=== PATIENT | female | born 1960 | race Caucasian/White ===

== ENCOUNTER 2022-04-21 07:22 | Outpatient (CLI) | payer OTHER, SELFPAY | END 2022-04-21 07:23 | disposition home or self-care (01) | LOC: FRMREF 04-29 09:03 | PROVIDERS: PCP Family Medicine; Visit Provider Physician Assistant Medical | DX: Z00.00 Encounter for general adult medical examination without abnormal findings (principal); E03.9 Hypothyroidism, unspecified; E78.5 Hyperlipidemia, unspecified; I10 Essential (primary) hypertension | CPT/HCPCS: 80053; 80061; 84443 ==

== ENCOUNTER 2022-06-23 15:39 | Outpatient (CLI) | payer BC, SELFPAY ==
--- NOTE | 2022-06-23 15:40 | CRLHL7_ITS ---
For Patients: As a result of the Century Cures Act, medical imaging exams and procedure reports are released immediately into your electronic medical record. You may view this report before your referring provider. If you have questions, please contact your health care provider. BILATERAL SCREENING MAMMOGRAM WITH COMPUTER-AIDED DETECTION AND TOMOSYNTHESIS TECHNIQUE: CC and MLO views were obtained. These mammographic images have been obtained using full-field digital technique. These mammographic images were interpreted with the benefit of computer-aided detection. Breast Tomosynthesis was used in this interpretation. COMPARISON FILM: 04/29/15. FINDINGS: There are scattered areas of fibroglandular density IMPRESSION: There is no radiographic evidence for malignancy. ASSESSMENT: BI-RADS Category 1: Negative RECOMMENDATION: Routine screening mammogram in 1 year. A lay language report of this examination will be provided to the patient. Tre Diez M.D. Diagnostic/Nuclear Medicine Radiologist [email or web address] SISSY/Dictated by: Tre Diez MD @ 06/30/2022 7:59:00 AM (Electronically Signed)
== END 2022-06-23 15:40 | disposition home or self-care (01) ==
LOC: MAMMO 15:44
PROVIDERS: PCP Family Medicine
DX: Z12.31 Encounter for screening mammogram for malignant neoplasm of breast (principal)
CPT/HCPCS: 77063; 77067

== ENCOUNTER 2023-05-03 08:56 | Outpatient (CLI) | payer BC, SELFPAY | END 2023-05-03 08:57 | disposition home or self-care (01) | LOC: NFLDREF 05-04 14:24 | PROVIDERS: PCP Family Medicine; Visit Provider Physician Assistant Medical | DX: E03.9 Hypothyroidism, unspecified (principal); E78.5 Hyperlipidemia, unspecified | CPT/HCPCS: 80053; 80061; 84443 ==

== ENCOUNTER 2023-08-02 11:32 | Outpatient (CLI) | payer BC, SELFPAY ==
--- NOTE | 2023-08-02 11:30 | CRLHL7_ITS ---
For Patients: As a result of the Century Cures Act, medical imaging exams and procedure reports are released immediately into your electronic medical record. You may view this report before your referring provider. If you have questions, please contact your health care provider. BILATERAL DIGITAL SCREENING MAMMOGRAM WITH TOMOSYNTHESIS AND COMPUTER-AIDED DETECTION CLINICAL HISTORY: Routine screening exam. COMPARISON: 06/23/2022, 04/29/2015. TECHNIQUE: Digital mammogram in CC and MLO projections including computer-aided detection (CAD). Tomosynthesis utilized. BREAST COMPOSITION: The breasts are heterogeneously dense, which may obscure small masses. FINDINGS: RIGHT Breast: Focal asymmetric density upper outer quadrant 5 cm from the nipple. LEFT Breast: No suspicious findings. IMPRESSION: RIGHT breast asymmetry/mass. RECOMMENDATIONS: Additional mammographic views of the RIGHT breast including 3D spot compression CC/MLO. RIGHT breast ultrasound may also be required. BI-RADS Category 0: Incomplete: Need Additional Imaging Evaluation and/or Prior Mammograms for Comparison [facility] will contact the patient for follow-up. A lay language report of this examination will be provided to the patient. Dictated by Shankar Oliva MD @ 08/03/2023 8:41:14 AM kelly/Dictated by: Shankar Oliva MD @ 08/03/2023 8:41:00 AM (Electronically Signed)
== END 2023-08-02 11:33 | disposition home or self-care (01) ==
LOC: MAMMO 11:33
PROVIDERS: PCP Family Medicine; Visit Provider Family Medicine
DX: Z12.31 Encounter for screening mammogram for malignant neoplasm of breast (principal); N63.10 Unspecified lump in the right breast, unspecified quadrant; R92.2 Inconclusive mammogram
CPT/HCPCS: 77063; 77067

== ENCOUNTER 2023-08-08 13:35 | Outpatient (CLI) | payer BC, SELFPAY ==
--- NOTE | 2023-08-08 14:00 | CRLHL7_ITS ---
For Patients: As a result of the Century Cures Act, medical imaging exams and procedure reports are released immediately into your electronic medical record. You may view this report before your referring provider. If you have questions, please contact your health care provider. INDICATION: Calf pain TECHNIQUE: Ultrasound venous duplex lower left extremity. Compression venous exam was performed using rodriguez-scale, color Doppler, and spectral Doppler analysis. COMPARISON: None. FINDINGS: Sonographic imaging demonstrates the left common femoral, deep femoral, superficial femoral, popliteal, posterior tibial and greater saphenous and the contralateral right common femoral veins to be fully compressible with normal color Doppler blood flow. IMPRESSION: Normal left lower extremity venous ultrasound, no sign of deep venous thrombosis. Dictated by Teja Lim MD @ 08/08/2023 5:07:24 PM (Electronically Signed)
== END 2023-08-08 13:36 | disposition home or self-care (01) ==
PROVIDERS: PCP Physician Assistant Medical; Visit Provider Physician Assistant Medical
DX: M79.662 Pain in left lower leg (principal)
CPT/HCPCS: 93971

== ENCOUNTER 2023-08-18 09:15 | Outpatient (CLI) | payer BC, SELFPAY ==
--- NOTE | 2023-08-18 09:45 | CRLHL7_ITS ---
For Patients: As a result of the Cures Act, medical imaging exams and procedure reports are released immediately into your electronic medical record. You may view this report before your referring provider. If you have questions, please contact your health care provider. RIGHT DIGITAL DIAGNOSTIC MAMMOGRAM WITH COMPUTER-AIDED DETECTION AND TOMOSYNTHESIS RIGHT BREAST ULTRASOUND CLINICAL HISTORY: RIGHT breast mass/asymmetry. COMPARISON: 08/02/2023, 06/23/2022 TECHNIQUE: Digital RIGHT mammogram in two projections. Mammographic images were interpreted with the benefit of computer-aided detection and tomosynthesis. Real-time ultrasound imaging of RIGHT breast with imaging documentation. Scanning was performed by both the technologist and the radiologist. BREAST COMPOSITION: Scattered fibroglandular densities. FINDINGS: 3D spot compression cc/MLO RIGHT breast mammogram images submitted. Persistent asymmetric density in the upper outer quadrant RIGHT breast. No suspicious calcifications. Targeted RIGHT breast ultrasound performed. At 11 o`clock 3 cm from the nipple, there is a hypoechoic focus measuring 8 x 7 x 6 mm. This may be taller than wide. IMPRESSION: Indeterminate hypoechoic focus at anterior depth of RIGHT breast at 11 o`clock 3 cm from the nipple, measuring 8 mm. RECOMMENDATIONS: Ultrasound-guided core needle biopsy recommended. Results and recommendations discussed with the patient. BI-RADS Category 4. Suspicious. Dictated by Shankar Oliva MD @ 08/18/2023 12:32:48 PM CRL:[email or web address] RD/Dictated by: Shankar Oliva MD @ 08/18/2023 12:32:00 PM (Electronically Signed)
--- NOTE | 2023-08-18 09:54 | CRLHL7_ITS ---
For Patients: As a result of the Century Cures Act, medical imaging exams and procedure reports are released immediately into your electronic medical record. You may view this report before your referring provider. If you have questions, please contact your health care provider. PLEASE SEE RIGHT DIAGNOSTIC MAMMOGRAM OF SAME DAY FOR COMBINED REPORT. CRL:[email or web address] RD/Dictated by: Shankar Oliva MD @ 08/18/2023 12:32:00 PM (Electronically Signed)
== END 2023-08-18 09:16 | disposition home or self-care (01) ==
LOC: MAMMO 09:16
PROVIDERS: PCP Physician Assistant Medical; Visit Provider Physician Assistant Medical
DX: N63.10 Unspecified lump in the right breast, unspecified quadrant (principal); R92.8 Other abnormal and inconclusive findings on diagnostic imaging of breast
CPT/HCPCS: 76642; 77065; G0279

== ENCOUNTER 2023-08-30 13:45 | Outpatient (RCR) | payer BC, SELFPAY ==
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
--- NOTE | 2023-07-24 12:31 | PT.OPDN ---
PT [place] Outpatient Daily Note PT [facility] Outpatient Daily Note Start: 05/05/23 12:45 Freq: Status: Active Protocol: Document 07/24/23 12:21 [place] (Rec: 07/24/23 12:29 [place]ENCE [id number]) E-signed By CAROL RollinsT, MS PT OP Daily Progress Note Visit Information Note Type Recert/Progress Note Visit Number 6 Insurance Authorized Visits - Physician Authorized Visits Eval and treat Insurance Information Recert Due Date 07/04/23 Insurance Name Blue Cross/Blue Shield Medical Diagnosis Cervicalgia; other chronic pain Treating Diagnosis Decreased B CS flexibility, B CS muscular hypertonicity, posture dysfunction, deep neck flexor and B UE weakness Subjective Subjective Pt reports PT sessions remain extremely helpful with continued overall improvement in neck pain and HAs. Continues to experience elevated B UT and upper CS tension but her HEP and heat remain effective at reducing sxs. Hopes to decrease sxs before leaving for [place] in Aug. Pain Comments 0-4/10 Preferred Name Isabelle Objective Other/Pertinent Objective CS AROM Flex: 45 deg with stretch Ext: 35 deg with pain SB: B 30 deg B 75 deg with stretch MMT: shoulder flexion B 5/5 shoulder abduction B 5/5 shoulder IR: B 5/5 shoulder ER: B 4+/5 Deep neck flexors: 24 sec with fatigue LT: L 4/5 R 4-/5 MT: 4/5 B Palpation: improved hypertonicity B CS paraspinals , B levator scap, UT and scalenes Posture: B rounded shoulders and slight fwd head in sitting Special tests: spurlings compression - B for pain just tightness, no pain and relief with distraction cervical flexion and rotation test: normal rotation and no associated pains B hypomobility C1-T3 PA and UPA Patient Instructed in Risks/Benefits Yes Therapeutic Exercise Therapeutic Exercise Minutes (minutes) 20 Therapeutic Exercise: To Restore Levator scap and UT stretches Functional Status Rows and B shoulder ext progressed GTB 15 x 3 slower movement UBE fwd/bwd x 5 min for warmup Progressed to supine chin tuck 2 lift 24 x 4 Doorway pec stretch Seated chin tucks Manual Therapy Techniques Manual Therapy Minutes (minutes) 25 Manual Therapy Techniques *resolution of neck pain following Manual CS traction STM/TPR SO, CS alix, UT and levator. B SO and UT again most reactive with decreased hypertonicity following. Grade 3-4 B 1st rib, CPA and UPA C5-T4 Skilled passive B UT and levator scap stretches Treatment Minutes Timed Code Treatment Minutes 45 Total Treatment Time 45 Billing Units Manual Therapy Units 2 Therapeutic Exercise Units 1 Assessment/Impression Assessment/Impression Pt continues to progress well in PT with decreased intensity and frequency of HAs and neck pain with all daily activities. She again responded very well to combination of MT, stretching and strengthening exercises with resolution of neck pain and improved rot AROM following today's session. B SO and upper CS alix tightness remains with overall improvement in hypertonicity and TPs. Reviewed stress reduction techniques. Good response again to progressions of strengthening exercises with fatigue following. Pt will benefit from continued skilled PT services, progressing as able. Plan of Care Physical Therapy Goals Short-term goals to be completed in 4 weeks: 1. Pt will report >50% improvement in HAs for a given week to improve candida to daily and work activities. Progressing 2. Pt will display normal sitting posture for >2 consecutive PT visits. MET residential goals to be completed in 12 weeks: 1. Pt will be independent and compliant with HEP and self management of symptoms. Progressing 2. Pt will improve B shoulder ER, IR, mid and lower trap strength >4/5 to improve tolerance to lifting and work activities. Progressing 3. Pt will report resolution of HAs to improve candida to daily activities. Progressing 4. Pt will report >50% improvement in NDI to significantly improve candida to daily activities. Progressing Daily Plan of Care Continue per POC Daily Plan of Care Comments Progress CS flexibility, and B deep CS flex and periscap strength, as able. Recertification Information Initial Certification Date 05/05/23 Recertification Start Date 07/04/23 Recertification Due Date 09/02/23 Reasons to Continue Skilled Therapy Pt continues to experience episodic HAs and neck pain, especially with stress and cold weather which limits her ability to drive and perform daily activities. B CS hypertonicity and TPs improving but remain. Rehabilitation Potential Excellent Continued Plan of Care and Interventions Continued MT and TE 1x every other week for 4-6 additional visits due to chronic nature of sxs. Provider Signature Shows Agreement With POC & Medical Necessity Physician Comment/Change Comment or Changes Physician NPI Number #
== END 2023-12-28 13:40 | disposition home or self-care (01) ==
PROVIDERS: PCP Family Medicine; Visit Provider Physician Assistant Medical
DX: M54.2 Cervicalgia (principal); G89.29 Other chronic pain; Z51.89 Encounter for other specified aftercare
CPT/HCPCS: 97110; 97140; 97162

== ENCOUNTER 2023-08-31 09:56 | Outpatient (CLI) | payer BC, SELFPAY ==
--- NOTE | 2023-08-31 10:15 | CRLHL7_ITS ---
For Patients: As a result of the Century Cures Act, medical imaging exams and procedure reports are released immediately into your electronic medical record. You may view this report before your referring provider. If you have questions, please contact your health care provider. ULTRASOUND-GUIDED RIGHT BREAST BIOPSY WITH CLIP PLACEMENT INDICATION: RIGHT breast lesion. Ultrasound-guided biopsy for diagnostic purposes. Informed consent was obtained. Benefits and risks were discussed. Risks included pain, bleeding, infection, and the possibly of a nondiagnostic procedure. The possibility of clip placement was also discussed with the patient. She agrees to this course of action. [place] protocol was followed. TIME-OUT conducted just prior to starting procedure confirmed patient identity, site/side, procedure, patient position, and availability of correct equipment. Pause for cause was performed. At the 11 o`clock position 3 cm from the RIGHT nipple there is an 8 x 7 x 6 mm ill-defined hypoechoic nodule. Utilizing sterile technique and 1 percent lidocaine for local anesthetic, a 14-gauge biopsy gun was utilized. Five passes were made into the lesion without significant difficulty. There is some bleeding within the breast about the lesion causing some subtle obscuration on passes 4 and 5. Subsequently a biopsy clip was placed. A post-procedure mammogram was performed. IMPRESSION: Technically successful ultrasound-guided biopsy of an 8 x 7 x 6 mm nodule at the 11 o`clock position 3 cm from the RIGHT nipple. The final pathology is pending. ACR not applicable Dictated by: Tre Diez MD @08/31/2023 11:09:51 AM jj/Dictated by: Tre Diez MD @ 08/31/2023 11:09:00 AM (Electronically Signed)
--- NOTE | 2023-08-31 11:00 | CRLHL7_ITS ---
For Patients: As a result of the Cures Act, medical imaging exams and procedure reports are released immediately into your electronic medical record. You may view this report before your referring provider. If you have questions, please contact your health care provider. POST-BIOPSY MAMMOGRAM FOR CLIP PLACEMENT TECHNIQUE: Post-procedure clip placement unilateral RIGHT breast mammogram performed with CC and MLO projection. FINDINGS: The biopsy clip is between the 11 and 12 o`clock position 3 cm from the nipple accounting for some distortion related to the overlying bandage. IMPRESSION: Post-procedure mammogram with biopsy clip upper outer quadrant RIGHT breast. ACR not applicable Dictated by: Tre Diez MD @08/31/2023 11:09:51 AM jj/Dictated by: Tre Diez MD @ 08/31/2023 11:09:00 AM (Electronically Signed)
== END 2023-08-31 09:57 | disposition home or self-care (01) ==
LOC: US 09:58
PROVIDERS: PCP Physician Assistant Medical; Visit Provider Physician Assistant Medical
DX: N63.10 Unspecified lump in the right breast, unspecified quadrant (principal); R92.8 Other abnormal and inconclusive findings on diagnostic imaging of breast
CPT/HCPCS: 19083; 77065; 88305; A4648; A4649

== ENCOUNTER 2024-04-30 14:06 | Outpatient (CLI) | payer BC, SELFPAY | END 2024-04-30 14:07 | disposition home or self-care (01) | PROVIDERS: PCP Physician Assistant Medical; Visit Provider Physician Assistant Medical | DX: E03.9 Hypothyroidism, unspecified (principal); E78.2 Mixed hyperlipidemia; I10 Essential (primary) hypertension | CPT/HCPCS: 80053; 80061; 84443 ==

== ENCOUNTER 2024-05-01 11:15 | Outpatient (RCR) | payer BC, SELFPAY ==
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
== END 2024-08-29 23:59 | disposition home or self-care (01) ==
PROVIDERS: PCP Physician Assistant Medical; Visit Provider Internal Medicine
DX: M54.2 Cervicalgia (principal); G89.29 Other chronic pain; R29.898 Other symptoms and signs involving the musculoskeletal system; R29.3 Abnormal posture; Z51.89 Encounter for other specified aftercare
CPT/HCPCS: 97110; 97140; 97162

== ENCOUNTER 2024-05-21 12:10 | Outpatient (CLI) | payer BC, SELFPAY ==
--- NOTE | 2024-05-21 13:40 | W.ANESCHARGE ---
Anesthesia Charges Start Date/Time Anesthesia Start Date: 05/21/24 Anesthesia Start Time: 12:57 Stop Date/Time Anesthesia Stop Date: 05/21/24 Anesthesia Stop Time: 14:00
--- NOTE | 2024-05-21 14:03 | W.ANESCHARGE ---
Anesthesia Charges Start Date/Time Anesthesia Start Date: 05/21/24 Anesthesia Start Time: 12:57 Stop Date/Time Anesthesia Stop Date: 05/21/24 Anesthesia Stop Time: 14:00
== END 2024-05-21 12:11 | disposition home or self-care (01) ==
LOC: OP CLINIC 12:11
PROVIDERS: PCP Physician Assistant Medical; Visit Provider Surgery
DX: R19.5 Other fecal abnormalities (principal); D12.0 Benign neoplasm of cecum; D12.2 Benign neoplasm of ascending colon; D12.3 Benign neoplasm of transverse colon; D12.4 Benign neoplasm of descending colon; K57.30 Diverticulosis of large intestine without perforation or abscess without bleeding
CPT/HCPCS: 00811; 45385; 88305; J2704

== ENCOUNTER 2024-12-17 13:49 | Outpatient (CLI) | payer BC, SELFPAY ==
--- NOTE | 2024-12-17 14:00 | CRLHL7_ITS ---
For Patients: As a result of the Century Cures Act, medical imaging exams and procedure reports are released immediately into your electronic medical record. You may view this report before your referring provider. If you have questions, please contact your health care provider. INDICATION: BILATERAL SCREENING MAMMOGRAM, ASYMPTOMATIC 64 F COMPARISON: 08/31/23, 08/02/23, 06/23/22 TECHNIQUE: CC and MLO views were obtained. These mammographic images have been obtained using full-field digital technique. These mammographic images were interpreted with the benefit of computer aided detection and tomosynthesis. BREAST COMPOSITION: There are scattered areas of fibroglandular density. FINDINGS: No suspicious findings. ASSESSMENT: BI-RADS 2 Benign RECOMMENDATION: Annual screening mammogram. A lay language report of this examination will be provided to the patient. Dictated by: Shankar Oliva MD @ 12/25/2024 12:46:33 (Electronically Signed)
== END 2024-12-17 13:50 | disposition home or self-care (01) ==
LOC: MAMMO 13:49
PROVIDERS: PCP Physician Assistant Medical; Visit Provider Physician Assistant Medical
DX: Z12.31 Encounter for screening mammogram for malignant neoplasm of breast (principal)
CPT/HCPCS: 77063; 77067

== ENCOUNTER 2025-05-13 10:01 | Outpatient (CLI) | payer MEDICARE, SELFPAY | END 2025-05-13 10:02 | disposition home or self-care (01) | LOC: NFLDREF 05-19 01:45 | PROVIDERS: PCP Physician Assistant Medical; Referring Provider Physician Assistant Medical; Visit Provider Physician Assistant Medical | DX: E03.9 Hypothyroidism, unspecified (principal) | CPT/HCPCS: 80053; 80061; 84443 ==

== ENCOUNTER 2025-06-18 13:03 | Outpatient (CLI) | payer MEDICARE, SELFPAY ==
--- NOTE | 2025-06-18 13:30 | CRLHL7_ITS ---
For Patients: As a result of the Century Cures Act, medical imaging exams and procedure reports are released immediately into your electronic medical record. You may view this report before your referring provider. If you have questions, please contact your health care provider. DXA BONE MINERAL DENSITY STUDY Reason for exam: Asymptomatic menopause. Current height (in): 66. Weight (lb): 138. Menopause age: 50. Ethnicity: White. 1. Have you had a previous hip or vertebral fracture? No. 2. Have you had any fractures during your adult life which did not result from significant trauma (e.g., auto accident)? No. 3. Did either of your parents have a hip fracture? No. 4. Do you smoke? Yes. 5. Have you ever taken Glucocorticoids? No. 6. Do you have rheumatoid arthritis? No. 7. Do you have secondary osteoporosis? No. 8. Do you drink 3 or more alcoholic drinks per day? Yes. 9. Are you being treated for osteoporosis? No. 10. Have you ever taken any of the following medications: Actonel, Evista, Fosamax, Miacalcin, Reclast, Boniva, Forteo, HRT (i.e. estrogen/hormone therapy), Protelos, Prolia, Vitamin D, Calcium, other ??? please specify. ANSWER: No. 11. Do you have any of the following medical conditions: Anorexia or bulimia, asthma or emphysema, end stage renal disease, hyperparathyroidism, any seizure disorders, cancer, inflammatory bowel diseases, hysterectomy, other ??? please specify. ANSWER: No. 12. What was your maximum height (inches)? 67. 13. Do you perform weight bearing exercise regularly? No. 14. Do you regularly consume dairy products? Yes. 15. Do you drink caffeinated beverages? Yes. 16. At what age did your period start? 12. 17. Are you premenopausal? No. 18. How many full-term pregnancies have you had? 3. 19. Have you ever missed your period for more than 6 months in a row (not including or menopause)? No. TECHNIQUE: Bone mineral density study was performed using the [employer]. FINDINGS: The results of the study expressed as bone mineral density (BMD) are as follows: Lumbar spine L1 to L4: BMD: 1.167 g/cm2. T-score: 1.1. Z-score: 2.9. Neck Left: BMD: 0.717 g/cm2. T-score: -1.2. Z-score: 0.3. Right: BMD: 0.648 g/cm2. T-score: -1.8. Z-score: -0.3. Total Left: BMD: 0.903 g/cm2. T-score: -0.3. Z-score: 0.9. Right: BMD: 0.807 g/cm2. T-score: -1.1. Z-score: 0.1. IMPRESSION: Osteopenia. *Comparison exams done prior to 01/2020 were performed on different unit, [facility]. FRAX 10-year Fracture Risk Major Osteoporotic Fracture: 12% Hip Fracture: 3.1% Reported Risk Factors: [place] () Neck BMD=0.648, BMI=22.3, smoking, alcohol use Shankar Oliva M.D. Diagnostic Radiologist [email or web address] [email or web address]/[email or web address]/Dictated by: Shankar Oliva MD @ 06/19/2025 8:59:00 AM (Electronically Signed)
--- NOTE | 2025-06-18 14:00 | CRLHL7_ITS ---
For Patients: As a result of the Cures Act, medical imaging exams and procedure reports are released immediately into your electronic medical record. You may view this report before your referring provider. If you have questions, please contact your health care provider. INDICATION: Lung cancer screening. History of smoking. High risk patient with greater than 20 pack-year smoking history. TECHNIQUE: Low-dose lung cancer screening non-contrast CT chest. Dose reduction techniques were used. COMPARISON: None. FINDINGS: NODULES: Subpleural nodular density right lung apex measures 5.7 millimeters, likely related to scarring. LUNGS AND PLEURA: Mild biapical pleural-parenchymal thickening. MEDIASTINUM: Incidental calcification right thyroid lobe. Vascular calcifications. No adenopathy. CORONARY ARTERY CALCIFICATION: Mild. LIMITED UPPER ABDOMEN: Unremarkable. MUSCULOSKELETAL: Unremarkable IMPRESSION: Negative for lung cancer screening purposes. LUNG-RADS CATEGORY: 2: Benign. RADIOLOGIST RECOMMENDATION: Continue annual screening, if eligible, with low-dose CT chest in 12 months. Please note that all CT scans at this facility use dose modulation, iterative reconstruction, and/or weight-based dosing when appropriate to reduce radiation dose to as low as reasonably achievable. Dictated by Shankar Oliva MD @ 06/18/2025 1:38:29 PM (Electronically Signed)
== END 2025-06-18 13:04 | disposition home or self-care (01) ==
LOC: RAD 13:03
PROVIDERS: PCP Physician Assistant Medical; Visit Provider Physician Assistant Medical
DX: Z12.2 Encounter for screening for malignant neoplasm of respiratory organs (principal); F17.210 Nicotine dependence, cigarettes, uncomplicated; Z78.0 Asymptomatic menopausal state; M85.89 Other specified disorders of bone density and structure, multiple sites
CPT/HCPCS: 71271; 77080